=== PATIENT | female | born 1940 ===

== ENCOUNTER 2020-11-09 09:44 | Observation (INO) ==
[2020-11-09] MEDS ORDERED: 0.9 % Sodium Chloride 1,000 ML IVC ONE (10:51)
[2020-11-09] MEDS ORDERED: methylPREDNISolone 125 MG/2 ML VIAL IVP ONE (10:51)
[2020-11-09] MEDS ORDERED: Ipratropium/Albuterol Neb 3 ML IH ONE (10:51)
[2020-11-09 11:35] LABS: Hemoglobin 10.6 g/dL (11.5-15.4); Immature Granulocytes % 0.4 % (0-4)
[2020-11-09 11:37] LABS: Basophils # 0.1 K/mcL (0.0-0.2); Basophils % 0.6 %; Eosinophils # 0.2 K/mcL (0.0-0.6); Eosinophils % 2.7 %; Immature Platelets 13.5 % (1.1-6.1); Mean Corpuscular HGB Conc 31.2 g/dL (31.6-35.5); Mean Corpuscular Hemoglobin 29.2 pg (28.0-33.3); Mean Corpuscular Volume 93.7 fL (83.0-100.0); Monocytes # 0.8 K/mcL (0.0-1.3); Monocytes % 9.5 %; Neutrophils # 4.1 K/mcL (1.6-8.9); Red Blood Count 3.63 M/mcL (3.82-4.97); Segmented Neutrophils % 49.8 %; White Blood Count 8.2 K/mcL (4.3-11.1)
[2020-11-09 11:56] LABS: BUN/Creatinine Ratio 24 (6-26); Blood Urea Nitrogen 20 mg/dL (8-23); Calcium 9.3 mg/dL (8.6-10.3); Carbon Dioxide 25 mEq/L (23-29); Chloride 107 mEq/L (98-107); Glucose 78 mg/dL (70-105); Osmolality,Calculated 291 (280-300); Sodium 140 mEq/L (136-145); eGFR For African Americans > 60 (> 60); eGFR For Non-African Americans > 60 (> 60)
[2020-11-09 11:57] LABS: Platelet Count 46 K/mcL (140-400)
[2020-11-09 12:01] LABS: Anisocytosis 3+ (Not Present); Hypochromasia Present (Not Present); Target Cells 1+ (Not Present)
[2020-11-09 12:02] LABS: Schistocytes 1+ (Not Present)
[2020-11-09 12:03] LABS: Troponin I < 0.03 ng/mL (< 0.04)
[2020-11-09 12:04] LABS: Platelet Estimate Decreased (Normal); Poikilocytosis 2+ (Not Present)
[2020-11-09] MEDS ORDERED: Naloxone 0.4 MG/ML INJ IVP PRN (13:26)
[2020-11-09] MEDS ORDERED: Azithromycin 250 MG TABLET PO ONE (13:33)
[2020-11-09] MEDS ORDERED: cefTRIAXone 1,000 MG in Water for inj. (sterile) 10 ML IVP ONE (13:33)
[2020-11-09] MEDS: Ipratropium/Albuterol Neb 3 ML IH SCH ×2 (16:06→20:17)
[2020-11-09] MEDS ORDERED: Acetaminophen 325 MG TABLET PO ONE (17:12)
[2020-11-09 17:29] LABS: Adenovirus Not Detected (Not Detect); Coronavirus 229E Not Detected (Not Detect); Coronavirus HKU1 Not Detected (Not Detect)
[2020-11-09 17:30] LABS: Bordetella Pertussis Not Detected (Not Detect); Chlamydophila pneumoniae Not Detected (Not Detect); Coronavirus NL63 Not Detected (Not Detect); Coronavirus OC43 Not Detected (Not Detect); Human Metapneumovirus Not Detected (Not Detect); Human Rhinovirus/Enterovirus Not Detected (Not Detect); Influenza A Subtype 2009 H1 Not Detected (Not Detect); Influenza B Not Detected (Not Detect); Mycoplasma pneumoniae Not Detected (Not Detect); Parainfluenza Virus 1 Not Detected (Not Detect); Parainfluenza Virus 2 Not Detected (Not Detect); Parainfluenza Virus 3 Not Detected (Not Detect); Parainfluenza Virus 4 Not Detected (Not Detect); Respiratory Syncytial Virus DETECTED (Not Detect); SARS-CoV-2 Not Detected (Not Detect)
[2020-11-09] MEDS: Fluticasone Propionate Nasal 50 MCG/SPRAY BOTTLE NS SCH (21:25)
[2020-11-10] MEDS: MethylPREDNISolone 40 MG/ML VIAL IVP SCH ×3 (00:50→17:16)
[2020-11-10] MEDS: Ipratropium/Albuterol Neb 3 ML IH SCH ×7 (00:57→23:58)
[2020-11-10] MEDS: Acetaminophen 325 MG TABLET PO PRN ×2 (02:00→17:15)
[2020-11-10 06:03] LABS: Basophils % 0.3 %; Hemoglobin 9.7 g/dL (11.5-15.4); Immature Granulocytes % 1.1 % (0-4)
[2020-11-10 06:05] LABS: Eosinophils % 0.2 %; Hematocrit 30.2 % (35.3-44.9); Immature Platelets 11.7 % (1.1-6.1); Lymphocytes # 1.1 K/mcL (0.6-4.6); Lymphocytes % 16.3 %; Mean Corpuscular HGB Conc 32.1 g/dL (31.6-35.5); Mean Corpuscular Hemoglobin 29.6 pg (28.0-33.3); Monocytes # 0.2 K/mcL (0.0-1.3); Monocytes % 3.2 %; Neutrophils # 5.2 K/mcL (1.6-8.9); Red Blood Count 3.28 M/mcL (3.82-4.97); Segmented Neutrophils % 78.9 %; White Blood Count 6.6 K/mcL (4.3-11.1)
[2020-11-10 06:20] LABS: Mean Corpuscular Volume 92.1 fL (83.0-100.0); Platelet Count 50 K/mcL (140-400)
[2020-11-10 06:30] LABS: % Iron Saturation 41 % (15-50); Iron 126 mcg/dL (50-170); Transferrin 220 mg/dL (203-362)
[2020-11-10 06:42] LABS: Ferritin 98 ng/mL (10-120)
[2020-11-10 06:46] LABS: Folate 7.5 ng/mL (3.0-16.0)
[2020-11-10 06:56] LABS: Anisocytosis 3+ (Not Present); Hypochromasia Present (Not Present)
[2020-11-10 06:57] LABS: Microcytosis Present (Not Present); Platelet Estimate Decreased (Normal); Poikilocytosis 1+ (Not Present); Schistocytes 1+ (Not Present)
[2020-11-10] MEDS: clonazePAM 1 MG TABLET PO SCH (09:46)
[2020-11-10] MEDS: Doxycycline 100 MG CAPSULE PO SCH ×2 (09:47→21:55)
[2020-11-10] MEDS: Fluticasone Propionate Nasal 50 MCG/SPRAY BOTTLE NS SCH ×2 (09:47→21:56)
[2020-11-10] MEDS: hydroCHLOROthiazide 25 MG TABLET PO SCH (09:47)
[2020-11-10] MEDS: carvediloL 6.25 MG TABLET PO SCH ×3 (09:47→22:07)
[2020-11-10] MEDS: lisinopriL 20 MG TABLET PO SCH (09:47)
[2020-11-11] MEDS: Acetaminophen 325 MG TABLET PO PRN (00:24)
[2020-11-11] MEDS: Ipratropium/Albuterol Neb 3 ML IH SCH ×3 (03:44→11:49)
[2020-11-11] MEDS: lisinopriL 20 MG TABLET PO SCH (08:38)
[2020-11-11] MEDS: Doxycycline 100 MG CAPSULE PO SCH (08:39)
[2020-11-11] MEDS: hydroCHLOROthiazide 25 MG TABLET PO SCH (08:39)
[2020-11-11] MEDS: clonazePAM 1 MG TABLET PO SCH (08:40)
[2020-11-11] MEDS: carvediloL 6.25 MG TABLET PO SCH (08:40)
[2020-11-11] MEDS: Fluticasone Propionate Nasal 50 MCG/SPRAY BOTTLE NS SCH (08:40)
[2020-11-11] MEDS ORDERED: predniSONE 20 MG TABLET PO SCH (09:00)
[2020-11-11 11:00] LABS: Eosinophils % 0.2 %; Hemoglobin 9.8 g/dL (11.5-15.4)
[2020-11-11 11:02] LABS: Basophils % 0.2 %; Hematocrit 30.5 % (35.3-44.9); Immature Granulocytes % 0.4 % (0-4); Immature Platelets 16.4 % (1.1-6.1); Lymphocytes # 1.8 K/mcL (0.6-4.6); Lymphocytes % 18.8 %; Mean Corpuscular HGB Conc 32.1 g/dL (31.6-35.5); Mean Corpuscular Hemoglobin 29.5 pg (28.0-33.3); Mean Corpuscular Volume 91.9 fL (83.0-100.0); Monocytes # 0.7 K/mcL (0.0-1.3); Monocytes % 7.2 %; Red Blood Count 3.32 M/mcL (3.82-4.97); Segmented Neutrophils % 73.2 %; White Blood Count 9.5 K/mcL (4.3-11.1)
[2020-11-11 11:10] VITALS: BP 149/71; PULSE 76; TEMP 97.6
[2020-11-11 11:19] LABS: Platelet Count 95 K/mcL (140-400)
[2020-11-11 11:36] VITALS: O2SAT 98
== END 2020-11-11 13:19 | disposition home or self-care (01) ==
LOC: 3BNU 09:44 → EMEROOARM 09:44 → SUATTDRO 14:02 → 3BNU 15:16
PROVIDERS: ADMIT Student in an Organized Health Care Education/Training Program; ATTEND Internal Medicine

== ENCOUNTER 2021-11-17 17:51 | Inpatient (IN) ==
[2021-11-17 22:09] LABS: Hemoglobin 6.3 g/dL (11.5-15.4)
[2021-11-17 22:10] LABS: Immature Platelets 16.1 % (1.1-6.1); Mean Corpuscular HGB Conc 33.2 g/dL (31.6-35.5); Mean Corpuscular Hemoglobin 27.4 pg (28.0-33.3); Mean Corpuscular Volume 82.6 fL (83.0-100.0); Monocytes # 0.2 K/mcL (0.0-1.3); Nucleated Red Blood Cells 1.5 /100 WBC (0); White Blood Count 2.1 K/mcL (4.3-11.1)
[2021-11-17 22:19] LABS: Platelet Count 47 K/mcL (140-400)
[2021-11-17 22:25] LABS: Albumin 3.7 g/dL (3.5-5.7); Albumin/Globulin Ratio 1.1 (1.1-2.2); Bilirubin,Total 0.8 mg/dL (0.3-1.0); Calcium 9.2 mg/dL (8.6-10.3); Globulin 3.3 g/dL (2.4-3.5); Potassium 3.6 mEq/L (3.5-5.1)
[2021-11-17 22:43] LABS: Lymphocytes # 1.4 K/mcL (0.6-4.6); Neutrophils # 0.4 K/mcL (1.6-8.9); Platelet Estimate Decreased (Normal)
[2021-11-17 22:44] LABS: Hypochromasia Present (Not Present); Microcytosis Present (Not Present)
[2021-11-17 22:45] LABS: Anisocytosis 2+ (Not Present); Ovalocytes 2+ (Not Present); Poikilocytosis 2+ (Not Present)
[2021-11-17] MEDS ORDERED: 0.9 % Sodium Chloride 250 ML ONE (23:13)
[2021-11-17] MEDS ORDERED: Melatonin 3 MG TABLET PO PRN (23:57)
[2021-11-17] MEDS ORDERED: Naloxone 0.4 MG/ML INJ IVP PRN (23:57)
[2021-11-17] MEDS ORDERED: Ondansetron ODT 4 MG TAB.RAPDIS SL PRN (23:57)
[2021-11-18 01:03] LABS: Influenza A PCR Negative (Negative); Influenza B PCR Negative (Negative); Resp. Syncytial Virus PCR Negative (Negative)
[2021-11-18 01:04] LABS: SARS-CoV-2 by PCR (In House) Negative (Negative)
[2021-11-18 01:43] LABS: Folate 7.1 ng/mL (3.0-16.0)
[2021-11-18 05:27] LABS: Hemoglobin 7.5 g/dL (11.5-15.4); Mean Corpuscular HGB Conc 32.6 g/dL (31.6-35.5); Mean Corpuscular Hemoglobin 27.6 pg (28.0-33.3); Mean Corpuscular Volume 84.6 fL (83.0-100.0); Red Blood Count 2.72 M/mcL (3.82-4.97); White Blood Count 1.7 K/mcL (4.3-11.1)
[2021-11-18 05:30] LABS: Basophils % 0.6 %; Eosinophils % 0.6 %
[2021-11-18 05:32] LABS: INR 1.4; Immature Granulocytes % 1.3 % (0-4); Immature Platelets 15.5 % (1.1-6.1); Lymphocytes % 67.9 %; Monocytes # 0.2 K/mcL (0.0-1.3); Monocytes % 12.6 %; Neutrophils # 0.3 K/mcL (1.6-8.9); Nucleated Red Blood Cells 1.9 /100 WBC (0); Prothrombin Time 15.1 Seconds (9.4-12.1)
[2021-11-18 05:43] LABS: Lymphocytes # 1.2 K/mcL (0.6-4.6); Platelet Count 39 K/mcL (140-400)
[2021-11-18 05:45] LABS: Albumin 3.6 g/dL (3.5-5.7); Albumin/Globulin Ratio 1.1 (1.1-2.2); Bilirubin,Total 1.6 mg/dL (0.3-1.0); Calcium 9.1 mg/dL (8.6-10.3); Globulin 3.2 g/dL (2.4-3.5); Magnesium 1.6 mg/dL (1.6-2.6); Phosphorous 2.7 mg/dL (2.7-4.5); Potassium 3.6 mEq/L (3.5-5.1); Total Protein 6.8 g/dL (6.4-8.9)
[2021-11-18 05:57] LABS: Anisocytosis 1+ (Not Present); Basophilic Stippling 1+ (Not Present); Hypochromasia Present (Not Present); Microcytosis Present (Not Present); Platelet Estimate Marked Decrease (Normal); Poikilocytosis 1+ (Not Present); Reactive Lymphocytes Present (Not Present)
[2021-11-18 05:58] LABS: Large Platelets Present (Not Present)
[2021-11-18] MEDS ORDERED: Iopamidol - 370 500 ML MLS IVP ONE (07:20)
[2021-11-18] MEDS ORDERED: Albuterol 2.5 MG/3 ML NEBULIZER IH PRN (14:13)
[2021-11-18] MEDS: Cefepime HCl 1,000 MG in 0.9 % Sodium Chloride 10 ML IVP SCH ×2 (14:36→21:53)
[2021-11-18] MEDS: lisinopriL 5 MG TABLET PO SCH ×2 (16:04→21:53)
[2021-11-18] MEDS: carvediloL 6.25 MG TABLET PO SCH (16:04)
[2021-11-18 16:31] LABS: Albumin 3.6 g/dL (3.5-5.7); Albumin/Globulin Ratio 1.1 (1.1-2.2); Bilirubin,Direct 0.3 mg/dL (0.0-0.2); Bilirubin,Indirect 0.8 mg/dL (0.0-1.0); Bilirubin,Total 1.1 mg/dL (0.3-1.0); Globulin 3.4 g/dL (2.4-3.5)
[2021-11-18 17:11] LABS: Bilirubin,Urine Negative (Negative); Blood,Urine Trace (Negative); Clarity,Urine Clear (Clear); Color,Urine Colorless (Yellow); Glucose,Urine (UA) Normal (Normal); Ketones,Urine 10 mg/dL (Negative); Leukocyte Esterase,Urine Negative (Negative); Nitrite,Urine Negative (Negative); Protein,Urine 70 mg/dL (Neg-Trace); Specific Gravity,Urine > 1.030 (1.010-1.025); Squamous Epithelial Cell,Urine Few per hpf (None-Few); Urobilinogen,Urine Normal (Normal); WBC,Urine 0-3 per hpf (0-3)
[2021-11-18 18:33] LABS: Retculocyte # 0.01 M/mcL (0.05-0.10); Reticulocyte % 0.4 % (1.6-2.8)
[2021-11-18] MEDS: Budesonide/Formoterol 80/4.5 1 PUFF INH IH SCH (21:40)
[2021-11-18] MEDS: clonazePAM 1 MG TABLET PO SCH (21:53)
[2021-11-18] MEDS ORDERED: Acetaminophen 325 MG TABLET PO ONE (22:04)
[2021-11-19 02:17] LABS: Basophils % 0.6 %; Eosinophils % 0.6 %; Hemoglobin 6.6 g/dL (11.5-15.4)
[2021-11-19 02:19] LABS: Immature Granulocytes % 1.2 % (0-4); Immature Platelets 15.6 % (1.1-6.1); Lymphocytes # 1.2 K/mcL (0.6-4.6); Lymphocytes % 70.8 %; Mean Corpuscular Hemoglobin 27.6 pg (28.0-33.3); Mean Corpuscular Volume 83.7 fL (83.0-100.0); Monocytes # 0.2 K/mcL (0.0-1.3); Monocytes % 9.9 %; Neutrophils # 0.3 K/mcL (1.6-8.9); Nucleated Red Blood Cells 2.3 /100 WBC (0); Platelet Count 33 K/mcL (140-400); Red Blood Count 2.39 M/mcL (3.82-4.97); Segmented Neutrophils % 16.9 %; White Blood Count 1.7 K/mcL (4.3-11.1)
[2021-11-19 02:35] LABS: Calcium 8.4 mg/dL (8.6-10.3); Potassium 3.6 mEq/L (3.5-5.1)
[2021-11-19 02:44] LABS: Anisocytosis 3+ (Not Present); Hypochromasia Present (Not Present); Microcytosis Present (Not Present); Platelet Estimate Marked Decrease (Normal)
[2021-11-19] MEDS: Cefepime HCl 1,000 MG in 0.9 % Sodium Chloride 10 ML IVP SCH ×3 (05:40→20:23)
[2021-11-19] MEDS: carvediloL 6.25 MG TABLET PO SCH ×2 (08:48→18:54)
[2021-11-19] MEDS: lisinopriL 5 MG TABLET PO SCH ×2 (08:49→20:23)
[2021-11-19] MEDS ORDERED: clonazePAM 1 MG TABLET PO SCH (09:00)
[2021-11-19] MEDS ORDERED: hydroCHLOROthiazide 25 MG TABLET PO SCH (09:00)
[2021-11-19] MEDS: Acetaminophen 325 MG TABLET PO PRN ×2 (09:59→20:33)
[2021-11-19] MEDS ORDERED: 0.9 % Sodium Chloride 250 ML ONE (10:28)
[2021-11-19] MEDS: Budesonide/Formoterol 80/4.5 1 PUFF INH IH SCH ×2 (10:51→21:23)
[2021-11-19] MEDS: clonazePAM 1 MG TABLET PO SCH (20:23)
[2021-11-20] MEDS: Cefepime HCl 1,000 MG in 0.9 % Sodium Chloride 10 ML IVP SCH ×2 (04:52→17:48)
[2021-11-20 05:16] LABS: Hematocrit 24.2 % (35.3-44.9); Hemoglobin 8.1 g/dL (11.5-15.4); Immature Platelets 14.9 % (1.1-6.1); Mean Corpuscular HGB Conc 33.5 g/dL (31.6-35.5); Mean Corpuscular Hemoglobin 28.6 pg (28.0-33.3); Mean Corpuscular Volume 85.5 fL (83.0-100.0); Red Blood Count 2.83 M/mcL (3.82-4.97); White Blood Count 1.9 K/mcL (4.3-11.1)
[2021-11-20 05:17] LABS: Platelet Count 31 K/mcL (140-400)
[2021-11-20 05:29] LABS: Albumin/Globulin Ratio 0.9 (1.1-2.2); Bilirubin,Direct 0.2 mg/dL (0.0-0.2); Bilirubin,Indirect 0.7 mg/dL (0.0-1.0); Bilirubin,Total 0.9 mg/dL (0.3-1.0); Globulin 3.5 g/dL (2.4-3.5); Total Protein 6.5 g/dL (6.4-8.9)
[2021-11-20] MEDS: Budesonide/Formoterol 80/4.5 1 PUFF INH IH SCH ×2 (08:07→20:25)
[2021-11-20] MEDS: carvediloL 6.25 MG TABLET PO SCH ×2 (08:26→17:46)
[2021-11-20] MEDS: Acetaminophen 325 MG TABLET PO PRN ×2 (08:27→17:46)
[2021-11-20] MEDS ORDERED: Albuterol 2.5 MG/3 ML NEBULIZER IH PRN (10:06)
[2021-11-20] MEDS ORDERED: Ipratropium Neb 0.5 MG NEBULIZER IH PRN (10:06)
[2021-11-20 11:10] LABS: Hemoglobin 7.7 g/dL (11.5-15.4)
[2021-11-20 11:12] LABS: Hematocrit 22.9 % (35.3-44.9); Immature Platelets 13.5 % (1.1-6.1); Mean Corpuscular HGB Conc 33.6 g/dL (31.6-35.5); Mean Corpuscular Hemoglobin 28.6 pg (28.0-33.3); Mean Corpuscular Volume 85.1 fL (83.0-100.0); Neutrophils # 0.3 K/mcL (1.6-8.9); Nucleated Red Blood Cells 2.8 /100 WBC (0); Red Blood Count 2.69 M/mcL (3.82-4.97); White Blood Count 1.4 K/mcL (4.3-11.1)
[2021-11-20 11:19] LABS: Calcium 8.5 mg/dL (8.6-10.3); Potassium 4.3 mEq/L (3.5-5.1)
[2021-11-20 11:35] LABS: Platelet Count 27 K/mcL (140-400)
[2021-11-20 11:39] LABS: Hypochromasia Present (Not Present); Microcytosis Present (Not Present); Monocytes # 0.1 K/mcL (0.0-1.3); Platelet Estimate Marked Decrease (Normal); Poikilocytosis 2+ (Not Present); Schistocytes 1+ (Not Present); Target Cells 1+ (Not Present)
[2021-11-20 11:40] LABS: Anisocytosis 2+ (Not Present); Ovalocytes 1+ (Not Present)
[2021-11-20] MEDS: clonazePAM 1 MG TABLET PO SCH (20:15)
[2021-11-21] MEDS: Acetaminophen 325 MG TABLET PO PRN ×3 (02:16→19:36)
[2021-11-21 04:24] LABS: Hemoglobin 7.6 g/dL (11.5-15.4)
[2021-11-21 04:25] LABS: Hematocrit 22.7 % (35.3-44.9); Immature Platelets 16.4 % (1.1-6.1); Mean Corpuscular HGB Conc 33.5 g/dL (31.6-35.5); Mean Corpuscular Hemoglobin 28.5 pg (28.0-33.3); Red Blood Count 2.67 M/mcL (3.82-4.97); White Blood Count 1.6 K/mcL (4.3-11.1)
[2021-11-21 04:32] LABS: Platelet Count 28 K/mcL (140-400)
[2021-11-21 04:42] LABS: Potassium 3.7 mEq/L (3.5-5.1)
[2021-11-21] MEDS: Cefepime HCl 1,000 MG in 0.9 % Sodium Chloride 10 ML IVP SCH ×2 (06:29→17:25)
[2021-11-21] MEDS: Budesonide/Formoterol 80/4.5 1 PUFF INH IH SCH ×2 (07:38→20:09)
[2021-11-21] MEDS: carvediloL 6.25 MG TABLET PO SCH ×2 (08:48→16:11)
[2021-11-21] MEDS ORDERED: *HR* Midazolam HCl 2 MG/2 ML VIAL IVP ONE (10:12)
[2021-11-21] MEDS ORDERED: *HR* FentaNYL (PF) 100 MCG/2 ML VIAL IVP ONE ×2 (10:12→14:17)
[2021-11-21] MEDS ORDERED: *HR* FentaNYL (PF) 100 MCG/2 ML VIAL ONE (14:25)
[2021-11-21 15:31] LABS: PNH Monocytes Percent <0.200 % (0.000-0.200)
[2021-11-21] MEDS: clonazePAM 1 MG TABLET PO SCH (19:36)
[2021-11-22] MEDS: Acetaminophen 325 MG TABLET PO PRN ×3 (01:59→19:33)
[2021-11-22] MEDS: Cefepime HCl 1,000 MG in 0.9 % Sodium Chloride 10 ML IVP SCH (04:50)
[2021-11-22] MEDS: Budesonide/Formoterol 80/4.5 1 PUFF INH IH SCH ×2 (08:07→22:22)
[2021-11-22] MEDS: carvediloL 6.25 MG TABLET PO SCH ×2 (09:25→17:21)
[2021-11-22 11:20] LABS: PNH RBCs Percent <0.008 % (0.000-0.008)
[2021-11-22 14:36] LABS: Hematocrit 23.6 % (35.3-44.9)
[2021-11-22 14:38] LABS: Hemoglobin 7.8 g/dL (11.5-15.4); Immature Platelets 12.4 % (1.1-6.1); Mean Corpuscular HGB Conc 33.1 g/dL (31.6-35.5); Mean Corpuscular Volume 87.7 fL (83.0-100.0); Monocytes # 0.2 K/mcL (0.0-1.3); Neutrophils # 0.4 K/mcL (1.6-8.9); Red Blood Count 2.69 M/mcL (3.82-4.97); White Blood Count 1.5 K/mcL (4.3-11.1)
[2021-11-22 14:40] LABS: Platelet Count 37 K/mcL (140-400)
[2021-11-22 15:15] LABS: Calcium 8.5 mg/dL (8.6-10.3); Potassium 3.9 mEq/L (3.5-5.1)
[2021-11-22 15:32] LABS: Anisocytosis 1+ (Not Present); Hypochromasia Present (Not Present); Platelet Estimate Marked Decrease (Normal)
[2021-11-22 15:33] LABS: Poikilocytosis 2+ (Not Present); Target Cells 1+ (Not Present)
[2021-11-22] MEDS ORDERED: Cefepime HCl 2,000 MG in 0.9 % Sodium Chloride Mini Bag 100 ML IVPB SCH (16:00)
[2021-11-22] MEDS: Cefepime HCl 2,000 MG in 0.9 % Sodium Chloride Mini Bag 100 ML IVPB SCH (17:21)
[2021-11-22] MEDS: clonazePAM 1 MG TABLET PO SCH (19:40)
[2021-11-23] MEDS: Acetaminophen 325 MG TABLET PO PRN ×3 (01:37→20:04)
[2021-11-23] MEDS: Cefepime HCl 2,000 MG in 0.9 % Sodium Chloride Mini Bag 100 ML IVPB SCH (04:33)
[2021-11-23] MEDS: carvediloL 6.25 MG TABLET PO SCH ×2 (08:52→16:26)
[2021-11-23 09:23] LABS: Basophils % 0.6 %; Calcium 8.6 mg/dL (8.6-10.3); Eosinophils % 0.6 %; Hematocrit 23.2 % (35.3-44.9); Hemoglobin 7.8 g/dL (11.5-15.4); Immature Granulocytes % 1.2 % (0-4); Mean Corpuscular HGB Conc 33.6 g/dL (31.6-35.5); Mean Corpuscular Hemoglobin 28.4 pg (28.0-33.3); Mean Corpuscular Volume 84.4 fL (83.0-100.0); Monocytes # 0.2 K/mcL (0.0-1.3); Monocytes % 14.3 %; Neutrophils # 0.5 K/mcL (1.6-8.9); Nucleated Red Blood Cells 1.2 /100 WBC (0); Potassium 4.1 mEq/L (3.5-5.1); Red Blood Count 2.75 M/mcL (3.82-4.97); Segmented Neutrophils % 27.3 %; White Blood Count 1.7 K/mcL (4.3-11.1)
[2021-11-23 10:39] LABS: Anisocytosis 1+ (Not Present); Hypochromasia Present (Not Present); Platelet Count 34 K/mcL (140-400); Target Cells 1+ (Not Present); Tear Drop Cells 2+ (Not Present)
[2021-11-23 10:40] LABS: Platelet Estimate Decreased (Normal)
[2021-11-23] MEDS: Budesonide/Formoterol 80/4.5 1 PUFF INH IH SCH ×2 (11:18→20:40)
[2021-11-23] MEDS ORDERED: levoFLOXacin 750 MG TABLET PO ONE (15:04)
[2021-11-23 18:11] LABS: A.galactomannan Ag Index 0.03
[2021-11-23 18:33] LABS: Alpha 2 Globulin (PEP) 0.78 g/dL (0.48-1.05); Beta Globulin (PEP) 0.87 g/dL (0.48-1.10)
[2021-11-23] MEDS: clonazePAM 1 MG TABLET PO SCH (20:05)
[2021-11-23 23:05] VITALS: BP 100/61; PULSE 92; TEMP 98.1; O2SAT 93
[2021-11-24] MEDS: Acetaminophen 325 MG TABLET PO PRN (02:31)
[2021-11-24 10:54] LABS: Immunoglobulin A 551 mg/dL (68-408)
[2021-11-24 10:55] LABS: IFE Reflexed IFE Done; Immunoglobulin G 862 mg/dL (768-1632); Immunoglobulin M 75 mg/dL (35-263)
== END 2021-11-24 04:20 | disposition short-term general hospital (02) | DRG 834 ==
LOC: EMEROOARM 17:51 → 3ANU 17:51 → SUATTDRO 11-19 14:48
PROVIDERS: ADMIT Internal Medicine; ATTEND Registered Nurse